=== PATIENT | male | born 1970 | race Caucasian/White ===

== ENCOUNTER 2023-12-10 21:44 | Emergency (ER) | payer OTHER, SELFPAY ==
[2023-12-10] VITALS (19 sets, daily range): BP systolic 129–174; BP diastolic 76–95; PULSE 67–95; RESP 15–28; TEMP 36.5; O2SAT 93–99; BMI 32.8
--- NOTE | 2023-12-10 22:13 | ED_ITS ---
HPI - Chest Pain General Chief Complaint: Chest Pain Stated Complaint: CHEST PAIN Time Seen by Provider: 12/10/23 22:07 Source: patient Mode of arrival: walk-in Limitations: no limitations History of Present Illness HPI narrative: patient presented complaining of chest pain. Pain left chest radiating to the shoulder and back. Associated with diaphoresis. Finally resolved after about 10min. MD complaint: Reports chest pain Related Data Allergies Allergy/AdvReac Type Severity Reaction Status Date / Time Penicillins Allergy Intermediate Verified 12/10/23 21:51 Review of Systems ROS Status of ROS 10 or more systems reviewed and unremark able except as noted in history and below [facility] Social History Smoking status: Current every day smoker Exam Constitutional Vital Signs, click to edit/add: Last Vital Signs Temp 97.7 F 12/10/23 21:46 Pulse 90 12/11/23 01:20 Resp 18 12/11/23 01:20 BP 159/86 H 12/11/23 01:15 Pulse Ox 95 12/11/23 01:20 O2 Del Method Room Air 12/10/23 21:46 Common normals: no apparent distress, average body habitus, oriented x3, no limitations, healthy appearing, alert and well nourished Eye Common normals: PERRL and EOMs intact bilaterally Respiratory Common normals: normal respiratory effort, no retractions, no use of accessory muscles and clear to auscultation bilaterally Cardio Common normals: regular rate, regular rhythm, S1 normal heart sound and S2 normal heart sound GI Common normals: Normal to inspection, nondistended, normoactive bowel sounds present and soft to palpation Extremity Common normals: normal to inspection and full ROM Neuro Common normals: oriented x3, CN's II-XII intact bilaterally, moves all extremities and no focal motor deficits Psych Appearance: grossly normal Course Vital Signs Vital signs: Vital Signs Temperature 97.7 F 12/10/23 21:46 Pulse Rate 70 12/10/23 21:46 Respiratory Rate 12/10/23 21:46 Blood Pressure 174/87 H 12/10/23 21:46 Pulse Oximetry 98 12/10/23 21:46 Oxygen Delivery Method Room Air 12/10/23 21:46 Temperature 97.7 F 12/10/23 21:46 Pulse Rate 90 12/11/23 01:20 Respiratory Rate 18 12/11/23 01:20 Blood Pressure 159/86 H 12/11/23 01:15 Pulse Oximetry 95 12/11/23 01:20 Oxygen Delivery Method Room Air 12/10/23 21:46 MDM - Chest Pain MDM Narrative Medical decision making narrative: patient presents with acute onset of left sided chest pain that radiated to his back and was associated with diaphoresis. Resolved after 10 minute. EKG with nonspecific changes. serial troponin neg. d-dmer positive for CTA chest without PE. Patient discharged home to follow up with his PCP to discuss his chest pain and consideration for a stress test to complete his workup Lab Data Labs: Lab Results 12/10/23 12/11/23 Range/Units 22:00 01:15 WBC 9.6 (4.0-11.0) 10^3/uL RBC 4.66 L (4.70-6.10) 10^6/uL Hgb 14.8 (14.0-18.0) g/dL Hct 42.2 (42.0-54.0) % MCV 90.6 (80.0-94.0) fL MCH 31.8 (25.9-34.0) pg MCHC 35.1 (29.9-35.2) g/dL RDW 11.7 (11.0-15.0) % Plt Count 254 (150-450) 10^3/uL MPV 9.4 L (9.5-13.5) fL Neut % (Auto) 51.6 (43.0-75.0) % Lymph % (Auto) 37.7 (20.5-60.0) % [place] % (Auto) 7.8 (1.7-12.0) % Eos % (Auto) 2.1 (0.9-7.0) % Baso % (Auto) 0.5 (0.2-2.0) % Neut # (Auto) 5.0 (1.4-6.5) 10^3/uL Lymph # (Auto) 3.6 (1.2-3.8) 10^3/uL [place] # (Auto) 0.8 (0.3-0.8) 10^3/uL Eos # (Auto) 0.2 (0.0-0.7) 10^3/uL Baso # (Auto) 0.1 (0.0-0.1) 10^3/uL Abs Immat Gran (auto) 0.03 (0.00-0.03) 10^3/uL Imm/Tot Granulo (auto) 0.3 (0.0-0.5) % D-Dimer 0.78 H* (<=0.59) mg/L FEU Sodium 138 (136-145) mmol/L Potassium 3.7 (3.5-5.1) mmol/L Chloride 105 (98-107) mmol/L Carbon Dioxide 24.0 (21.0-32.0) mmol/L Anion Gap 12.7 BUN 20.0 H (7.0-18.0) mg/dL Creatinine 1.16 (0.70-1.30) mg/dL Est GFR ( Amer) >60 (>=60) Est GFR (Non-Af Amer) >60 (>=60) BUN/Creatinine Ratio 17.2 Glucose 199 H (74-106) mg/dL Calcium 8.4 L (8.5-10.1) mg/dL Troponin I High Sens 5.0 7.4 (4.0-76.1) pg/mL Imaging Data CT scan - chest: Radiologist's impression: ITS Impressions Chest X-Ray 12/10/23 22:16 IMPRESSION: Nonacute chest. Electronically authenticated by: RADHA PATTERSON Date: 12/10/2023 23:33 Chest CTA 12/10/23 22:35 IMPRESSION: 1. No evidence of pulmonary embolus. 2. No acute airspace disease in the lungs. Electronically authenticated by: ANA LAN Date: 12/10/2023 23:53 Discharge Plan Discharge Chief Complaint: Chest Pain Clinical Impression: Chest pain Patient Disposition: Home, Self-Care Instructions: Chest Pain (ED) Additional Instructions: follow up with your doctor or with Dr Brock this week return if pain recurs Stand Alone Forms: Portal Instructions Referrals: Physician,Non-Staff, MD [Primary Care Provider] - 1 week
--- NOTE | 2023-12-10 22:16 | ECG_ITS ---
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
--- NOTE | 2023-12-10 22:16 | XR_ITS ---
The [address] [address] Patient Name: PHILLY KENNEY MRN: [id number] date: 1970 Sex: M Assigned Patient Location: ER Current Patient Location: ER Accession/Order Number: [id number] Exam Date: 12/10/2023 23:55 Report Date: 12/10/2023 23:33 At the request of: VIRGEN CARVAJAL Procedure: XR chest 1V EXAM: XR chest 1V HISTORY: chest pain COMPARISON: None. TECHNIQUE: AP upright portable chest x-ray. FINDINGS: The heart, mediastinum, lungs and pleural spaces appear within normal limits. The bony thorax is intact. XR/XR chest 1V IMPRESSION: Nonacute chest. Electronically authenticated by: RADHA PATTERSON Date: 12/10/2023 23:33
[2023-12-10 22:23] LABS: Basophils Absolute Auto 0.1 10^3/uL (0.0-0.1); Basophils Percent Auto 0.5 % (0.2-2.0); Eosinophils Absolute Auto 0.2 10^3/uL (0.0-0.7); Eosinophils Percent Auto 2.1 % (0.9-7.0); Hematocrit 42.2 % (42.0-54.0); Hemoglobin 14.8 g/dL (14.0-18.0); Immature Granulocytes Abs Auto 0.03 10^3/uL (0.00-0.03); Immature Granulocytes Pct Auto 0.3 % (0.0-0.5); Lymphocytes Absolute Auto 3.6 10^3/uL (1.2-3.8); Lymphocytes Percent Auto 37.7 % (20.5-60.0); Mean Corpuscular HGB Conc 35.1 g/dL (29.9-35.2); Mean Corpuscular Hemoglobin 31.8 pg (25.9-34.0); Mean Corpuscular Volume 90.6 fL (80.0-94.0); Mean Platelet Volume 9.4 fL (9.5-13.5); Monocytes Absolute Auto 0.8 10^3/uL (0.3-0.8); Monocytes Percent Auto 7.8 % (1.7-12.0); Neutrophils Percent Auto 51.6 % (43.0-75.0); Platelet Count 254 10^3/uL (150-450); Red Blood Count 4.66 10^6/uL (4.70-6.10); Red Cell Distribution Width 11.7 % (11.0-15.0); White Blood Count 9.6 10^3/uL (4.0-11.0)
[2023-12-10 22:34] LABS: D Dimer 0.78 mg/L FEU (<=0.59)
--- NOTE | 2023-12-10 22:35 | CT_ITS ---
[address] [address] Patient Name: PHILLY KENNEY MRN: [id number] date: 1970 Sex: M Assigned Patient Location: ER Current Patient Location: ER Accession/Order Number: [id number] Exam Date: 12/10/2023 23:00 Report Date: 12/10/2023 23:53 At the request of: VIRGEN CARVAJAL Procedure: CT angio chest EXAMINATION:CT angio chest INDICATION:chest pain COMPARISON:None TECHNIQUE:Thin section transaxial slices were acquired through the chest with intravenous contrast per PE protocol. Coronal and sagittal reconstructed images were reviewed. FINDINGS: PULMONARY ARTERIES: There is good opacification of the pulmonary vasculature. No suspicious pulmonary arterial filling defects are identified to suggest pulmonary embolus. LUNGS: There is a tiny 2 mm size nodule in the right middle lobe. There is atelectasis in the lung bases. No acute airspace disease or pulmonary masses are present. PLEURAL CAVITY: No pleural effusion. MEDIASTINUM: Trachea and central airways are patent. HEART: No coronary artery calcifications are present.There is no evidence of right heart strain. VASCULAR:No aneurysm or dissection of the thoracic aorta. LYMPH NODES:No suspicious lymphadenopathy. CHEST WALL/AXILLA: Chest wall and axilla are unremarkable. BONES: Multilevel endplate degenerative disc disease and Schmorl's node formation is present in the mid to lower thoracic spine. VISUALIZED UPPER ABDOMEN: Upper abdominal structures are unremarkable. CT/CT angio chest IMPRESSION: 1. No evidence of pulmonary embolus. 2. No acute airspace disease in the lungs. Electronically authenticated by: ANA LAN Date: 12/10/2023 23:53
[2023-12-10 23:10] LABS: Anion Gap 12.7; BUN Creatinine Ratio 17.2; Calcium 8.4 mg/dL (8.5-10.1); Chloride 105 mmol/L (98-107); Estimated GFR (African America >60 (>=60); Estimated GFR (Non-African Ame >60 (>=60); Glucose 199 mg/dL (74-106); Potassium 3.7 mmol/L (3.5-5.1); Sodium 138 mmol/L (136-145)
[2023-12-11] VITALS (16 sets, daily range): BP systolic 131–159; BP diastolic 76–91; PULSE 65–90; RESP 14–23; O2SAT 93–97
[2023-12-11 01:37] LABS: Troponin I High Sensitivity 7.4 pg/mL (4.0-76.1)
== END 2023-12-11 02:09 | disposition home or self-care (01) ==
PROVIDERS: Emergency Provider Internal Medicine
DX: R07.9 Chest pain, unspecified (principal); F17.210 Nicotine dependence, cigarettes, uncomplicated
CPT/HCPCS: 36415; 71045; 71275; 80048; 84484; 85025; 85378; 93005; 99285; Q9967

== ENCOUNTER 2025-04-01 16:42 | Emergency (ER) | payer OTHER, SELFPAY ==
[2025-04-01 16:47] VITALS: BP 137/79; PULSE 68; TEMP 36.7; O2SAT 97; BMI 30.8
[2025-04-01] MEDS: ONDANSETRON PF 4 MG/2 ML VIAL IV (17:12)
[2025-04-01] MEDS: KETOROLAC TROMETHAMINE 30 MG/ML VIAL IVP (17:12)
[2025-04-01] MEDS: 0.9 % SODIUM CHLORIDE 1,000 ML 1000 ML IV (17:12)
[2025-04-01 17:20] LABS: Basophils Percent Auto 0.3 % (0.2-2.0); Eosinophils Absolute Auto 0.1 10^3/uL (0.0-0.7); Eosinophils Percent Auto 1.2 % (0.9-7.0); Hematocrit 40.3 % (42.0-54.0); Hemoglobin 14.5 g/dL (14.0-18.0); Immature Granulocytes Abs Auto 0.02 10^3/uL (0.00-0.03); Immature Granulocytes Pct Auto 0.2 % (0.0-0.5); Lymphocytes Absolute Auto 2.7 10^3/uL (1.2-3.8); Lymphocytes Percent Auto 30.3 % (20.5-60.0); Mean Corpuscular Hemoglobin 32.2 pg (25.9-34.0); Mean Corpuscular Volume 89.4 fL (80.0-94.0); Mean Platelet Volume 9.5 fL (9.5-13.5); Monocytes Absolute Auto 0.7 10^3/uL (0.3-0.8); Monocytes Percent Auto 7.2 % (1.7-12.0); Neutrophils Absolute Auto 5.5 10^3/uL (1.4-6.5); Neutrophils Percent Auto 60.8 % (43.0-75.0); Platelet Count 267 10^3/uL (150-450); Red Blood Count 4.51 10^6/uL (4.70-6.10); Red Cell Distribution Width 11.7 % (11.0-15.0)
--- NOTE | 2025-04-01 17:29 | ED_ITS ---
HPI HPI - General Adult General Chief complaint: Abdominal Pain Stated complaint: BACK PAIN Time Seen by Provider: 04/01/25 16:46 Source: patient Mode of arrival: walk-in Limitations: no limitations History of Present Illness HPI narrative: 55-year-old male presents here chief complaint of left flank pain. Patient states the pain began earlier today. Said a history of kidney stones with flank pain and similar. States last kidney stone was over a year ago. He did not follow-up with urology. He was able to pass a stone on his own. He complains of flank pain nausea no emesis. Patient's vital signs are stable he is afebrile Related Data Home Medications ?Medication ?Instructions ?Recorded ?Confirmed pantoprazole 40 mg tablet,delayed 40 mg PO DAILY 04/0104/01/25 release Previous Rx's ?Medication ?Instructions ?Recorded ondansetron HCl 4 mg tablet 4 mg PO Q8H PRN nausea and 04/01/25 vomiting 3 days #10 tabs tamsulosin 0.4 mg capsule (Flomax) 0.4 mg PO DAILY #7 caps 04/01/25 Allergies Allergy/AdvReac Type Severity Reaction Status Date / Time Penicillins Allergy Intermediate Rash Verified 04/01/25 16:46 Opioid HPI Opioid Management Most Recent Opioid Data: Last Pain Scale 0 Today, 17:44 Last ED Pain Assessment Today, 17:44 Last MAR Pain Assessment Today, 17:12 Review of Systems ROS Status of ROS 10 or more systems reviewed and unremark able except as noted in history and below PFSH PFSH Medical History (Updated 04/01/25 @ 18:01 by Jessica Apodaca) History of kidney stones ?Z87.442 - Personal history of urinary calculi (ICD-10) GERD (gastroesophageal reflux disease) ?K21.9 - Gastro-esophageal reflux disease without esophagitis (ICD-10) Surgical History (Updated 04/01/25 @ 16:53 by Shaw Elder) History of hip replacement ?Z96.649 - Presence of unspecified artificial hip joint (ICD-10) Social History Smoking status: Current every day smoker Little interest or pleasure in doing things: not at all Feeling down, depressed, or hopeless: not at all Exam Narrative Exam Narrative: All Systems are negative except as noted/marked.All systems reviewed and otherwise negative Nurses note and vital signs reviewed and patient is not hypoxic. General: The patient appears well and in no apparent distress. Patient is resting comfortably on cart. Skin: Warm, dry, no pallor noted. There is no rash noted. Head: Normocephalic, atraumatic Eye: Normal conjunctiva, no drainage, EOMI. PERRL Respiratory: Patient is in no distress, no accessory muscle use, lungs are clear to auscultation, no wheezing, rales or rhonchi Back: No flank tenderness on palpation, non-tender, no CVA tenderness bilaterally to percussion. GI: Normal bowel sounds, no tenderness to palpation, no masses appreciated. No rebound, guarding, or rigidity noted. Musculoskeletal: The patient has no evidence of calf tenderness, no pitting edema, symmetrical pulses noted bilaterally Neurological: A&O x4, normal speech Psychiatric: Cooperative Constitutional Vital Signs, click to edit/add: Last Vital Signs Temp 98.1 F 04/01/25 16:47 Pulse 57 L 04/01/25 18:28 Resp 18 04/01/25 18:28 BP 130/80 04/01/25 18:28 Pulse Ox 97 04/01/25 18:28 O2 Del Method Room Air 04/01/25 18:28 Course Vital Signs Vital signs: Vital Signs Temperature 98.1 F 04/01/25 16:47 Pulse Rate 68 04/01/25 16:47 Respiratory Rate 20 04/01/25 16:47 Blood Pressure 137/79 04/01/25 16:47 Pulse Oximetry 97 04/01/25 16:47 Oxygen Delivery Method Room Air 04/01/25 16:47 Temperature 98.1 F 04/01/25 16:47 Pulse Rate 57 L 04/01/25 18:28 Respiratory Rate 18 04/01/25 18:28 Blood Pressure 130/80 04/01/25 18:28 Pulse Oximetry 97 04/01/25 18:28 Oxygen Delivery Method Room Air 04/01/25 18:28 Medical Decision Making MDM Narrative Medical decision making narrative: 55-year-old male presents here chief complaint of left flank pain. Patient states the pain began earlier today. Said a history of kidney stones with flank pain and similar. States last kidney stone was over a year ago. He did not follow-up with urology. He was able to pass a stone on his own. He complains of flank pain nausea no emesis. Patient's vital signs are stable he is afebrile Emergency room IV was established patient was given IV fluids Toradol and Zofran. His pain improved significantly. CT scan was performed and showed he had mild left hydronephrosis with 3 mm stone at the left UV junction an additional 2 mm stone not obstructing the left renal calculus. Patient's had s tones in the past. He will be discharged home with a prescription for pain medication Zofran and Flomax. Follow-up with urology. Reasons to return to emergency room including difficulty with urination fevers chills greater than 102 ?F were discussed. Patient agrees with plan of care. He was also provided a strainer upon discharge. Differential Diagnosis Differential Diagnosis: uti, Flank pain, kidney stone Medical Records Medical records reviewed: Yes I reviewed the patient's medical records Lab Data Lab results reviewed: Yes I reviewed the patient's lab results Labs: Lab Results 04/01/25 04/01/25 Range/Units 17:04 18:03 WBC 9.0 (4.0-11.0) 10^3/uL RBC 4.51 L (4.70-6.10) 10^6/uL Hgb 14.5 (14.0-18.0) g/dL Hct 40.3 L (42.0-54.0) % MCV 89.4 (80.0-94.0) fL MCH 32.2 (25.9-34.0) pg MCHC 36.0 H (29.9-35.2) g/dL RDW 11.7 (11.0-15.0) % Plt Count 267 (150-450) 10^3/uL MPV 9.5 (9.5-13.5) fL Neut % (Auto) 60.8 (43.0-75.0) % Lymph % (Auto) 30.3 (20.5-60.0) % [place] % (Auto) 7.2 (1.7-12.0) % Eos % (Auto) 1.2 (0.9-7.0) % Baso % (Auto) 0.3 (0.2-2.0) % Neut # (Auto) 5.5 (1.4-6.5) 10^3/uL Lymph # (Auto) 2.7 (1.2-3.8) 10^3/uL [place] # (Auto) 0.7 (0.3-0.8) 10^3/uL Eos # (Auto) 0.1 (0.0-0.7) 10^3/uL Baso # (Auto) 0.0 (0.0-0.1) 10^3/uL Abs Immat Gran (auto) 0.02 (0.00-0.03) 10^3/uL Imm/Tot Granulo (auto) 0.2 (0.0-0.5) % Sodium 137 (136-145) mmol/L Potassium 3.7 (3.5-5.1) mmol/L Chloride 103 (98-107) mmol/L Carbon Dioxide 26.6 (21.0-32.0) mmol/L Anion Gap 11.1 BUN 21.0 H (7.0-18.0) mg/dL Creatinine 1.18 (0.70-1.30) mg/dL Est GFR ( Amer) >60 (>=60 mL/min/1.73m^2) Est GFR (Non-Af Amer) >60 (>=60 mL/min/1.73m^2) BUN/Creatinine Ratio 17.8 Glucose 106 (74-106) mg/dL Calcium 9.4 (8.5-10.1) mg/dL Total Bilirubin 0.3 (0.2-1.0) mg/dL AST 31 (15-37) U/L ALT 44 (16-63) U/L Alkaline Phosphatase 56 (46-116) U/L Total Protein 7.7 (6.4-8.2) g/dL Albumin 4.2 (3.4-5.0) g/dL Globulin 3.5 g/dL Albumin/Globulin Ratio 1.2 Urine Color Lt. yellow (YELLOW) Urine Clarity Clear (CLEAR) Urine pH 6.0 (5.0-9.0) Ur Specific [place] <=1.005 A (1.005-1.025) Urine Protein Negative (NEG/TRACE) mg/dL Urine Glucose (UA) Negative (NEGATIVE) mg/dL Urine Ketones Negative (NEGATIVE) mg/dL Urine Occult Blood Moderate A (NEGATIVE) Urine Nitrite Negative (NEGATIVE) Urine Bilirubin Negative (NEGATIVE) Urine Urobilinogen 0.2 (0.2-1.0) EU/dL Ur Leukocyte Esterase Negative (NEGATIVE) Urine RBC 2-5 A (0-2) #/HPF Urine WBC 0-2 A (NONE SEEN) #/HPF Ur Squamous Epith Cells Rare (NONE/RARE) #/LPF Urine Crystals None seen (None Seen) #/HPF Urine Bacteria None seen (NONE SEEN) #/HPF Urine Casts None seen (NONE SEEN) #/LPF Urine Mucus None seen (NONE SEEN) Ur Culture Indicated? No Discharge Plan Discharge Chief Complaint: Abdominal Pain Clinical Impression: Left nephrolithiasis Patient Disposition: Home, Self-Care Time of Disposition Decision: 18:01 Condition: Good Prescriptions / Home Meds: New ondansetron HCl 4 mg tablet 4 mg PO Q8H PRN (Reason: nausea and vomiting) 3 Days Qty: 10 0RF tamsulosin [Flomax] 0.4 mg capsule 0.4 mg PO DAILY Qty: 7 0RF No Action pantoprazole 40 mg tablet,delayed release (DR/EC) 40 mg PO DAILY Print Language: Italian Instructions: Kidney Stones (ED), How to Strain Your Urine (ED) Referrals: MELVIN VILLAFANA MD [Primary Care Provider] - 1 week Robert Conte MD [Physician, Urology] - 1 week Discharge Date/Time: 04/01/25 18:29
[2025-04-01 17:30] LABS: Alanine Aminotransferase 44 U/L (16-63); Albumin Globulin Ratio 1.2; Albumin Level 4.2 g/dL (3.4-5.0); Alkaline Phosphatase 56 U/L (46-116); Anion Gap 11.1; Aspartate Amino Transferase 31 U/L (15-37); BUN Creatinine Ratio 17.8; Bilirubin Total 0.3 mg/dL (0.2-1.0); Calcium 9.4 mg/dL (8.5-10.1); Carbon Dioxide 26.6 mmol/L (21.0-32.0); Chloride 103 mmol/L (98-107); Estimated GFR (African America >60 (>=60 mL/min/1.73m^2); Estimated GFR (Non-African Ame >60 (>=60 mL/min/1.73m^2); Globulin 3.5 g/dL; Glucose 106 mg/dL (74-106); Potassium 3.7 mmol/L (3.5-5.1); Sodium 137 mmol/L (136-145); Total Protein 7.7 g/dL (6.4-8.2)
[2025-04-01 18:13] LABS: Bilirubin Urine NEGATIVE (NEGATIVE); Blood Urine MODERATE (NEGATIVE); Clarity Urine CLEAR (CLEAR); Color Urine LT. YELLOW (YELLOW); Glucose Urine UA NEGATIVE (NEGATIVE); Ketones Urine NEGATIVE (NEGATIVE); Leukocyte Esterase Urine NEGATIVE (NEGATIVE); Nitrite Urine NEGATIVE (NEGATIVE); Protein Urine NEGATIVE (NEG/TRACE); Specific Gravity Urine <=1.005 (1.005-1.025); Urobilinogen Urine 0.2 EU/dL (0.2-1.0)
[2025-04-01 18:20] LABS: Bacteria Urine NONE SEEN #/HPF (NONE SEEN); Cast Seen? NONE SEEN #/LPF (NONE SEEN); Crystals Seen? None Seen #/HPF (None Seen); Mucus Urine NONE SEEN (NONE SEEN); Squamous Epithelial Cell Urine RARE #/LPF (NONE/RARE); Urine Culture Indicated NO; WBC Urine 0-2 #/HPF (NONE SEEN)
[2025-04-01 18:28] VITALS: BP 130/80; PULSE 57; O2SAT 97
== END 2025-04-01 18:29 | disposition home or self-care (01) ==
PROVIDERS: Physician Assistant; Emergency Provider Emergency Medicine; PCP Internal Medicine
DX: N13.2 Hydronephrosis with renal and ureteral calculous obstruction (principal); Z87.442 Personal history of urinary calculi; Z96.649 Presence of unspecified artificial hip joint; F17.200 Nicotine dependence, unspecified, uncomplicated
CPT/HCPCS: 36415; 74176; 80053; 81001; 85025; 96374; 96375; 99285; J1885; J2405